=== PATIENT | male | born 1940 | race Caucasian/White ===

== ENCOUNTER 2017-08-22 07:15 | Outpatient (CLI) | payer OTHER | END 2017-08-22 07:20 | disposition home or self-care (01) | LOC: SONOGRAMA 07:15 | DX: E04.1 Nontoxic single thyroid nodule (principal) ==

== ENCOUNTER 2025-03-02 11:20 | Emergency (ER) ==
[~2025-03-02] VITALS: Ht 165.1 cm; Wt 85.7 kg
[2025-03-02] MEDS ORDERED: ACETAMINOPHEN 500 MG GEL..CAP PO ONE (12:15)
== END 2025-03-02 14:31 | disposition home or self-care (01) ==
LOC: ER 11:20
DX: S00.83XA Contusion of other part of head, initial encounter (principal); Z88.0 Allergy status to penicillin; Z88.6 Allergy status to analgesic agent; W01.0XXA Fall on same level from slipping, tripping and stumbling without subsequent striking against object, initial encounter; Y93.89 Activity, other specified; Y92.832 Beach as the place of occurrence of the external cause